=== PATIENT | female | born 1970 | race Caucasian/White ===

== ENCOUNTER 2017-09-26 12:12 | Emergency (ER) | payer BC, SELFPAY ==
[2017-09-26 13:45] VITALS: BP 146/96; PULSE 105; RESP 18; TEMP 37.6; O2SAT 97; BMI 48.9
[2017-09-26 14:17] LABS: Strep Scrn Group A (Rapid) Negative (Negative)
--- NOTE | 2017-09-26 16:06 | HMH.EDGENADL ---
ED Disposition Clinical Impression: Upper respiratory disease Disposition: Home, Self-Care Condition on Discharge: Good Instructions: Acute Bronchitis Prescriptions: Azithromycin [Z-Edwin 250mg Tab] 250 mg PO UD DOSE PK #6 tab - Critical Care Critical Care Time: No Attestation: On 09/26/17, the high probability of a clinically significant, sudden or life threatening deterioration of the following system(s) required my full and direct attention, intervention and personal management. The time I documented below is in addition to time spent performing reported procedures but includes the following listed in this critical care notation. Medical Decision Making Vital Signs: 09/26/17 13:45 Temperature 99.6 F Temperature Source Oral Pulse Rate [Left Brachial] 105 H Respiratory Rate 18 Blood Pressure [Left Arm] 146/96 Blood Pressure Mean [Left Arm] 112 Blood Pressure Source [Left Arm] Automatic Cuff Blood Pressure Position [Left Arm] Sitting 02 Sat by Pulse Oximetry 97 Oxygen Delivery Method Room Air - Lab Data Lab results reviewed: Yes: I reviewed the patient's lab results. negative flu and strep Orders (Tests/Meds): ED MEDICATIONS Discontinued Medications Generic Name Dose Route Start Last Admin Trade Name Freq PRN Reason Stop Dose Admin Acetaminophen 1,000 mg 09/26/17 14:19 09/26/17 14:30 Tylenol 500mg Tablet PO 09/26/17 14:20 1,000 mg ONCE ONE Administration ORDERS Category Date Time Status Strep Screen Confirmation Stat Micro 09/26/17 14:07 Received - Natan Inquiry Pt receiving controlled substance: No General Adult HPI - General Chief complaint: Fever Stated complaint: fever ear pain head sore throat Mode of Arrival: Ambulatory Limitations: No Limitations Description of Symptoms (Recalled from ER Triage Doc. by RN): cough, congestion, fever - History of Present Illness Onset (ago): day(s) (1) Location: head, face, mouth, chest Radiation: non-radiation Severity: moderate Quality: burning, aching Consistency: constant Relieving factors: none, cold therapy Exacerbating factors: none - Related Data Previous Rx's Medication Instructions Recorded Azithromycin [Z-Edwin 250mg Tab] 250 mg PO UD DOSE PK #6 tab 09/26/17 Allergies Allergy/AdvReac Type Severity Reaction Status Date / Time sertraline [From Zoloft] Allergy Severe Chest Pain Verified 09/26/17 13:55 Latex, Natural Rubber Allergy Intermediate Swelling Verified 09/26/17 13:55 of the Eye penicillin G Allergy Intermediate Hives Verified 09/26/17 13:54 [facility] History Medical History: Reports:: Diabetes Mellitus Type 2 - *Social History Educational Level: Completed College Smoking Status: Former smoker Tobacco Type: cigarettes Alcohol Intake: never - Psychiatric History Expresses thoughts of harming self/others: None Suicide Plan Description: No Plan ROS Obtained: Yes All systems reviewed & no additional complaints except - Constitutional Reports body ache(s), Reports chills, Reports fever(s) - ENT Reports sore throat - Respiratory Reports cough - Endocrine Reports other (she reported that her BS was 280 this morning) Physical Exam - General General appearance: alert, in no apparent distress - Head Head exam: atraumatic, normocephalic, normal inspection - Eye Eye exam: Present: normal appearance, PERRL, EOMI - ENT ENT exam: Present: normal exam, normal oropharynx, mucous membranes moist, TM's normal bilaterally, normal external ear exam - Neck Neck exam: Present: normal inspection, full ROM, trachea midline - Chest Chest inspection: Present: normal inspection, symmetric chest wall rise. Absent: tenderness - Respiratory Respiratory exam: Present: normal lung sounds bilaterally. Absent: respiratory distress - Cardiovascular Cardiovascular exam: Present: regular rate, normal rhythm. Absent: JVD - Abdominal Exam Abdominal exam: Present: soft, normal bow
== END 2017-09-26 17:01 | disposition home or self-care (01) ==
PROVIDERS: Emergency Provider Family Medicine
DX: J20.9 Acute bronchitis, unspecified (principal); Z91.040 Latex allergy status; Z88.0 Allergy status to penicillin; Z87.891 Personal history of nicotine dependence
CPT/HCPCS: 87275; 87276; 87430; 99283

== ENCOUNTER 2022-03-14 18:49 | Emergency (ER) | payer BC, SELFPAY ==
[2022-03-14 19:05] VITALS: BP 172/93; PULSE 98; RESP 17; TEMP 37.2; O2SAT 97; BMI 53.1
--- NOTE | 2022-03-14 19:46 | HMH.EDUTC ---
[facility] [place] Clinical Impression: Sinusitis Qualifiers: Sinusitis location: unspecified location Chronicity: acute Recurrence: non-recurrent Qualified Code(s): J01.90 - Acute sinusitis, unspecified Disposition: Home, Self-Care Condition on Discharge: Good Instructions: DI for Sinusitis Additional Instructions: Drink plenty of fluids. Take tylenol or ibuprofen for pain or fever. Take the medications as directed. Follow up with your regular doctor. GO TO THE ER FOR ANY WORSENING SYMPTOMS The cough medication (promethazine dm) will make you drowsy, so don't drive or operate heavy machinery after taking it. Prescriptions: Promethazine/Dextromethorphan [Promethazine-Dm Syrup] 5 ml PO Q6HP PRN #240 ml PRN Reason: Cough Transmission Status: Received by [id number] methylPREDNISolone [Medrol] 4 mg PO DIRECTED 6 Days #21 packet Transmission Status: Received by [id number] Azithromycin [Z-Edwin 250mg Tab*] 250 mg PO UD DOSE PK #6 tab Transmission Status: Received by [id number] Referrals: Gill Camacho [Primary Care Provider] - Forms: Work/School Release Time of Disposition: 19:49 Medical Decision Making - Medical Records Medical records reviewed: No: I reviewed the patient's medical records. - Natan Inquiry Pt receiving controlled substance: No Vital Signs: 03/14/22 19:05 03/14/22 19:56 Temperature 98.9 F 98.9 F Temperature Source Oral Pulse Rate 98 H Pulse Rate [Left Radial] 98 H Respiratory Rate 17 17 Blood Pressure 172/93 H Blood Pressure [Right Arm] 172/93 H Blood Pressure Mean [Right Arm] 119 02 Sat by Pulse Oximetry 97 Orders (Tests/Meds): ED MEDICATIONS Discontinued Medications Generic Name Dose Route Start Last Admin Trade Name Freq PRN Reason Stop Dose Admin Ceftriaxone Sodium 1 gm 03/14/22 19:30 03/14/22 19:42 Ceftriaxone 1gm Vial IM 03/14/22 19:31 1 gm ONCE ONE Administration Lidocaine HCl 0 ml 03/14/22 19:30 03/14/22 19:43 Lidocaine 1% 5ml Pf Vial IM 03/14/22 19:31 2 ml ONCE ONE Administration Methylprednisolone Sodium Succinate 125 mg 03/14/22 19:30 03/14/22 19:42 Methylprednisolone Sod Succ 125mg Vial IM 03/14/22 19:31 125 mg ONCE ONE Administration [facility] [place] - General Stated complaint: cough,runny nose,congestion Time Seen by Provider: 03/14/22 19:47 Description of Symptoms (Recalled from Triage Doc. by RN): patient comes in for cough, congestion, runny nose. patient states symptoms began afternoon HEENT Symptoms (Recalled from RN notes): Yes Resp Symptoms (Recalled from RN notes): Yes Skin Symptoms (Recalled from RN notes): No MS Symptoms (Recalled from RN notes): No Functional Status (Recalled from RN notes): wnl - History of Present Illness Provider Complaint: She has had sinus congestion, sinus pressure, sinus drainage and a mild headache for the past 3 days. She has taken a home covid-19 test that was negative. She gets sinus infections and that is what she says is happening now. She denies siginficant chest congestion and cough. - Related Data Previous Rx's Medication Instructions Recorded Azithromycin [Z-Edwin 250mg Tab] 250 mg PO UD DOSE PK #6 tab 09/26/17 azithromycin 500 mg tablet 500 mg PO .COMPLEX #3 tab 11/19/19 prednisolone 5 mg (21 tabs) See Rx Instructions PO PER PKG DIR 11/19/19 tablets in a dose pack #21 tab Azithromycin [Z-Edwin 250mg Tab*] 250 mg PO UD DOSE PK #6 tab 03/14/22 Promethazine/Dextromethorphan 5 ml PO Q6HP PRN #240 ml 03/14/22 [Promethazine-Dm Syrup] methylPREDNISolone [Medrol] 4 mg PO DIRECTED 6 Days #21 03/14/22 packet Allergies Allergy/AdvReac Type Severity Reaction Status Date / Time sertraline [From Zoloft] Allergy Severe Chest Pain Verified 09/26/17 13:55 Latex, Natural Rubber Allergy Intermediate Swelling Verified 09/26/17 13:55 of the Eye penicillin G Allergy Intermediate Hives Verified 09/26/17 13:54
[2022-03-14 19:56] VITALS: BP 172/93; PULSE 98; RESP 17; TEMP 37.2
== END 2022-03-14 19:57 | disposition home or self-care (01) ==
PROVIDERS: Emergency Provider Nurse Practitioner Family; PCP Nurse Practitioner Family
DX: J01.90 Acute sinusitis, unspecified (principal)
CPT/HCPCS: 96372; 99212; G0463; J0696